=== PATIENT | female | born 1990 | race Two or more races ===

== ENCOUNTER 2025-03-19 16:04 | Emergency (ER) | payer OTHER ==
[~2025-03-19] VITALS: Ht 157.5 cm; Wt 79.8 kg
[2025-03-19] MEDS ORDERED: ONDANSETRON HCL 2 MG/ML VIAL IV ONE (17:45)
[2025-03-19] MEDS ORDERED: ONDANSETRON HCL 2 MG/ML VIAL ONE (18:17)
[2025-03-19 20:04] LABS: BASO % 0.3 % (0.1-1.2); EOS # 0.37 (0.04-0.54); EOS % 5.4 % (0.7-7.0); LYMPH # 3.06 (1.18-3.74); LYMPH % 45.0 % (19.3-53.1); MEAN PLATELET VOLUME 13.30 fl (9.4-12.4); MONO # 0.43 (0.24-0.82); MONO % 6.3 % (4.7-12.5); NEUT # 2.90 (1.56-6.13); NEUT % 42.7 % (34.0-71.1); RED CELL DISTRIBUTION WIDTH 12.2 % (11.6-14.4)
[2025-03-19 20:28] LABS: URINE APPEARANCE Clear; URINE BILIRRUBIN Negative (NEGATIVE); URINE BLOOD Large; URINE COLOR Yellow; URINE GLUCOSE Negative (NEGATIVE); URINE KETONE Negative (NEGATIVE); URINE LEUKOCYTE Negative; URINE NITRATE Negative; URINE PROTEIN Negative (NEGATIVE); URINE UROBILINOGEN 1.0 E.U./dl
[2025-03-19 20:32] LABS: URINE BACTERIA 329.4 uL (0.0-1933); URINE EPITHELIAL CELLS 17.0 uL (0.0-38.8); URINE RBC 4.1 uL (0.0-20.8); URINE WBC 3.6 uL (0.0-23.2)
[2025-03-19 21:33] LABS: URINE CAST 0.42 uL (0.0-1.40)
[2025-03-19 21:35] LABS: URINE MUCUS SCANT
== END 2025-03-20 01:19 ==
LOC: ER 16:04
PROVIDERS: General Practice
DX: O20.8 Other hemorrhage in early pregnancy (principal); O43.891 Other placental disorders, first trimester; Z3A.08 8 weeks gestation of pregnancy